=== PATIENT | male | born 2000 | race Hispanic/Latino ===

== ENCOUNTER 2023-04-15 19:52 | Emergency (ER) | payer OTHER ==
[2023-04-16] MEDS ORDERED: IBUPROFEN600 MG PO (01:14)
[2023-04-16] MEDS ORDERED: METHOCARBAMOL500 MG PO (01:14)
[2023-04-16 05:39] VITALS: BP 135/78
== END 2023-04-16 01:40 | disposition home or self-care (01) | DRG 605 ==
LOC: ED 19:52
DX: S10.93XA Contusion of unspecified part of neck, initial encounter (principal); V49.50XA Passenger injured in collision with unspecified motor vehicles in traffic accident, initial encounter